=== PATIENT | female | born 2000 | race Caucasian/White ===

== ENCOUNTER 2024-10-05 09:25 | Outpatient (REF) | payer MEDICAID, SELFPAY ==
[2024-10-05 16:37] LABS: Bilirubin Negative (Negative); Blood Large (Negative); Clarity Clear (Clear); Glucose Negative (Negative); Ketones Negative (Negative); Leukocyte Esterase Moderate (Negative); Nitrite Negative (Negative); Specific Gravity >= 1.030 (1.005-1.025); Urobilinogen 0.2 mg/dL (Up to 0.2)
[2024-10-05 16:57] LABS: Bacteria Negative HPF (Negative); C & S Indicated? No; Crystals Negative HPF (Negative); Epithelial Cells Many HPF (Negative); Mucus Trace (Negative)
== END 2024-10-05 09:26 | disposition home or self-care (01) ==
LOC: LBN 09:25
PROVIDERS: PCP Nurse Practitioner Family; Visit Provider Nurse Practitioner Family
DX: N39.0 Urinary tract infection, site not specified (principal); R30.0 Dysuria
CPT/HCPCS: 81003; 81015

== ENCOUNTER 2024-10-16 02:48 | Outpatient (CLI) | payer MEDICAID, SELFPAY ==
[2024-10-16 10:49] LABS: Panorama Kit Sent via Fed Ex
[2024-10-16 10:59] LABS: Abs Immature Grans 0.03 10^3/uL (0.0-0.06); Absolute Basophil Count 0.02 10^3/uL (0.0-0.2); Absolute Eosinophil Count 0.02 10^3/uL (0.0-0.7); Absolute Lymphocyte Count 2.37 10^3/uL (1.2-3.4); Absolute Monocyte Count 0.54 10^3/uL (0.1-0.8); Absolute Neutrophil Count 6.01 10^3/uL (1.2-6.7); Basophils % 0.2 %; Eosinophils % 0.2 %; HCT 38.3 % (36.0-46.0); HGB 13.2 g/dL (11.2-15.7); Immature Grans % 0.3 %; Lymphocytes % 26.4 %; MCH 30.2 pg (27.0-33.0); MCHC 34.5 % (32.0-36.0); MCV 88 fL (80-95); Neutrophils % 66.9 %; Platelet Count 221 10^3/uL (130-400); RBC 4.37 10^6/uL (3.93-5.22); RDW 12.1 % (11.7-14.6); RDW-SD 39.1 fL; WBC 8.99 10^3/uL (4.4-10.8)
[2024-10-16 11:55] LABS: TSH (W/Ref FT4) 0.74 uIU/mL (0.36-3.74)
[2024-10-16 20:14] LABS: HIV-1/2 Ag & Ab Screen Negative (Negative)
[2024-10-16 21:48] LABS: Hepatitis C Ab w Rflx HCV PCR Negative (Negative)
[2024-10-16 22:45] LABS: Hepatitis B Surface Ag Negative (Negative)
[2024-10-18 11:28] LABS: Rubella IgG Ab (UVM) Positive (See Note); Varicella IgG Antibody Positive (See Note)
[2024-10-18 15:32] LABS: Phospholipid Ab, IgG <9.4 GPL; Phospholipid Ab, IgM 10.8 MPL
[2024-10-18 20:23] LABS: Syphilis IgG w/Reflex Nonreactive (Nonreactive)
[2024-10-31 14:57] LABS: Result Summary NEGATIVE; Specimen WB Whole Blood
== END 2024-10-16 02:49 | disposition home or self-care (01) ==
LOC: LBO 02:49
PROVIDERS: PCP Nurse Practitioner Family; Visit Provider Advanced Practice Midwife
DX: Z34.91 Encounter for supervision of normal pregnancy, unspecified, first trimester (principal)
CPT/HCPCS: 36415; 81220; 81222; 86147; 86787; 86803; 86850; 86900; 86901; 87340; 87389; 84443; 85025; 86762; 86780

== ENCOUNTER 2024-10-16 10:39 | Outpatient (REF) | payer MEDICAID, SELFPAY | END 2024-10-16 10:40 | disposition home or self-care (01) | LOC: LBN 10:39 | PROVIDERS: PCP Nurse Practitioner Family; Visit Provider Advanced Practice Midwife | DX: Z34.91 Encounter for supervision of normal pregnancy, unspecified, first trimester (principal) | CPT/HCPCS: 87086 ==

== ENCOUNTER 2024-10-31 19:42 | Emergency (ER) | payer MEDICAID, SELFPAY ==
--- NOTE | 2024-10-31 19:45 | RT.EKG_ITS ---
APPROVED REPORT Exam: Resting ECG Reason for Exam: Shortness of breath Patient Location: E HR:107 bpm ECG Measurements Heart Rate 107 AXIS HI 157 P 54 QRSd 82 QRS 40 QT 326 T 1 QTc 434 Conclusion Sinus tachycardia...rate> 99 Borderline T abnormalities, diffuse leads...T flat/neg
[2024-10-31 19:47] VITALS: BP 133/73; PULSE 114; RESP 20; TEMP 36.8; O2SAT 96
[2024-10-31 19:50] VITALS: BP 133/73; PULSE 114; RESP 20; TEMP 36.8; O2SAT 96
[2024-10-31 20:04] VITALS: RESP 16
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
[2024-10-31 20:29] LABS: Abs Immature Grans 0.02 10^3/uL (0.0-0.06); Absolute Eosinophil Count 0.02 10^3/uL (0.0-0.7); Absolute Lymphocyte Count 1.49 10^3/uL (1.2-3.4); Absolute Monocyte Count 0.43 10^3/uL (0.1-0.8); Eosinophils % 0.3 %; HGB 12.5 g/dL (11.2-15.7); Immature Grans % 0.3 %; Lymphocytes % 24.6 %; MCH 30.4 pg (27.0-33.0); MCHC 34.7 % (32.0-36.0); MCV 88 fL (80-95); MPV 9.1 fL (8.0-11.0); Monocytes % 7.1 %; Neutrophils % 67.7 %; Platelet Count 153 10^3/uL (130-400); RBC 4.11 10^6/uL (3.93-5.22); RDW-SD 38.5 fL; WBC 6.06 10^3/uL (4.4-10.8)
[2024-10-31] MEDS: Albuterol 2.5 MG/3 ML INH SOLN VIAL UPD (20:33)
[2024-10-31] MEDS: Normal Saline 1,000 ML 1000 ML IV (20:45)
[2024-10-31 21:01] LABS: D-Dimer 405 ng/mlFEU (<500); Magnesium 1.9 mg/dL (1.8-2.4); TSH (W/Ref FT4) 0.39 uIU/mL (0.36-3.74); Troponin I < 4 ng/L (<or=51)
[2024-10-31 21:30] LABS: Troponin I < 4 ng/L (<or=51)
[2024-10-31 21:56] VITALS: PULSE 101; RESP 18; O2SAT 99
== END 2024-10-31 21:57 | disposition home or self-care (01) ==
PROVIDERS: Emergency Provider Emergency Medicine; PCP Nurse Practitioner Family
DX: O99.512 Diseases of the respiratory system complicating pregnancy, second trimester (principal); R06.02 Shortness of breath; O99.891 Other specified diseases and conditions complicating pregnancy; R00.1 Bradycardia, unspecified
CPT/HCPCS: 93005; 94640; 99284; 83735; 84443; 84484; 85025; 85379; 93010; J7613

== ENCOUNTER 2025-02-03 22:25 | Emergency (ER) | payer MEDICAID, SELFPAY ==
[2025-02-03] VITALS (56 sets, daily range): BP systolic 103–126; BP diastolic 67–81; PULSE 90–131; RESP 12–23; TEMP 37.1; O2SAT 98–100
--- NOTE | 2025-02-03 22:30 | RT.EKG_ITS ---
APPROVED REPORT Exam: Resting ECG Reason for Exam: chest pain Patient Location: E HR:93 bpm ECG Measurements Heart Rate 93 AXIS SC 158 P 24 QRSd 86 QRS 26 QT 337 T 0 QTc 420 Conclusion Sinus rhythm...normal P axis, V-rate 60- [address] segment or T wave abnormalities to suggest occlusive [place]
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
[2025-02-03 23:21] LABS: Abs Immature Grans 0.06 10^3/uL (0.0-0.06); HCT 32.8 % (36.0-46.0); HGB 11.2 g/dL (11.2-15.7); Immature Grans % 0.5 %; MCH 30.7 pg (27.0-33.0); MCHC 34.1 % (32.0-36.0); MCV 90 fL (80-95); MPV 9.1 fL (8.0-11.0); Platelet Count 215 10^3/uL (130-400); RBC 3.65 10^6/uL (3.93-5.22); RDW 12.1 % (11.7-14.6); RDW-SD 39.5 fL; WBC 11.32 10^3/uL (4.4-10.8)
[2025-02-03 23:35] LABS: INR 0.9 (0.9-1.1); PTT Activated 23.6 sec (20.6-30.2); Prothrombin Time 9.3 sec (9.1-11.1)
[2025-02-03 23:44] LABS: ALT 19 U/L (14-59); AST 11 U/L (15-37); Albumin 3.0 g/dL (3.4-5.0); Alkaline Phosphatase 85 U/L (46-116); Anion Gap 11.5 mmol/L (3-11); BUN 9 mg/dL (7-18); Bilirubin, Total 0.2 mg/dL (0.2-1.0); CO2 24.5 mmol/L (21.0-32.0); Calcium 9.4 mg/dL (8.5-10.1); Chloride 103 mmol/L (98-107); Estimated GFR 135.91 (mL/min/1.73m2); Glucose 111 mg/dL (74-106); Lipase 63 U/L (<78); Magnesium 1.8 mg/dL (1.8-2.4); NT-proBNP 29 pg/mL (<300); Potassium 3.3 mmol/L (3.5-5.1); Sodium 139 mmol/L (136-145); Total Protein 7.2 g/dL (6.4-8.2)
[2025-02-03 23:45] LABS: Troponin I < 4 ng/L (<or=51)
[2025-02-03 23:46] LABS: D-Dimer 763 ng/mlFEU (<500)
[2025-02-04] VITALS (19 sets, daily range): BP systolic 91–120; BP diastolic 55–76; PULSE 93–116; RESP 12–22; TEMP 36.8; O2SAT 97–100
--- NOTE | 2025-02-04 00:30 | DI.RAD_ITS ---
Exam(s) XR CHEST 2V PA LATERAL EXAM: XR CHEST 2V PA LATERAL CLINICAL HISTORY: chest pain TECHNIQUE: 2D digital imaging was performed. Two views. COMPARISON: No exams were available for comparison FINDINGS: HEART: Normal size. Aorta: Not dilated. PULMONARY VASCULATURE: Normal. MEDIASTINUM: Unremarkable. LUNGS: Clear. PLEURAL SPACE: No pleural effusion or pneumothorax. BONE:Mild scoliosis. SOFT TISSUES: Unremarkable. IMPRESSION: No acute abnormality. The preliminary [facility] report was reviewed. DATA REPOSITORY: RADIATION DOSE DELIVERED:
[2025-02-04] MEDS: Potassium Chloride Liquid 20 MEQ PKT 40 MEQ PO (00:50)
[2025-02-04 00:54] LABS: Troponin I < 4 ng/L (<or=51)
[2025-02-04 00:57] LABS: Glucose Negative (Negative)
[2025-02-04 00:59] LABS: C & S Indicated? No
--- NOTE | 2025-02-04 02:10 | DI.[facility]_ITS ---
PROCEDURE INFORMATION: Exam: XR Chest Exam date and time: 02/04/2025 12:59 AM Age: 24 years old Clinical indication: Chest wall pain and left-sided; Additional info: Chest pain TECHNIQUE: Imaging protocol: Radiologic exam of the chest. Views: 2 views. COMPARISON: No relevant prior studies available. FINDINGS: Lungs: No focal consolidation seen. Pleural spaces: No large pleural effusion seen. Heart/Mediastinum: No cardiomegaly. Bones/joints: Mild spinal curvature. IMPRESSION: No acute findings to explain reported symptoms. Dictated and Authenticated by: Eboni Merrill MD. Orderin Yari Torres MD
--- NOTE | 2025-02-06 07:51 | NUR.NOTE ---
Access chart to reconcile EKG orders with EKG's in [facility]. Duplicate order cancelled. Nursing Note:
== END 2025-02-04 02:39 | disposition home or self-care (01) ==
PROVIDERS: Emergency Provider Student in an Organized Health Care Education/Training Program; PCP Nurse Practitioner Family
DX: O99.412 Diseases of the circulatory system complicating pregnancy, second trimester (principal); R07.9 Chest pain, unspecified; Z79.82 Long term (current) use of aspirin; Z3A.27 27 weeks gestation of pregnancy
CPT/HCPCS: 80053; 83690; 93005; 99284; 71046; 81003; 81015; 83735; 83880; 84484; 85025; 85379; 85610; 85730; 93010

== ENCOUNTER 2025-02-08 00:31 | Outpatient (CLI) | payer MEDICAID, SELFPAY ==
--- NOTE | 2025-02-08 11:40 | DI.US_ITS ---
Exam(s) US OB HARLAN WEIGHT EXAM: US OB HARLAN WEIGHT CLINICAL HISTORY: size and HARLAN, hx prior preg IUGR , Z87.59. TECHNIQUE: Transabdominal obstetrical ultrasound performed. COMPARISON: US POCUS EXAM from 09/19/2024 FINDINGS: Number of fetuses: 1 position: BREECH Placental location: There is a grade 1 anterior placenta. The placental tip is greater than 5 cm from the internal os. No evidence of previa. BIOMETRIC DATA: BPD: 7.71cm, 31weeks HC: 27.44cm, 30weeks AC: 24.48cm, 28weeks 5days FL: 5.17cm, 27weeks 4days EFW: 1,257.05g, 2lb 13.98oz, 44.2% Composite Age: 29weeks 2days RUSSELL: 04/24/2025 Heart Rate: 142bpm Amniotic fluid index: 22.03cm. The largest pocket is 6.9 cm. IMPRESSION: 1. Single live intrauterine gestation as above. 2. Estimated weight is 1257gms. This is the 44th percentile. 3. Amniotic fluid index is 22 cm. The largest pocket is 6.9 cm. DATA REPOSITORY:
== END 2025-02-08 00:51 ==
LOC: DI 00:32
PROVIDERS: PCP Nurse Practitioner Family; Visit Provider Advanced Practice Midwife
DX: Z34.83 Encounter for supervision of other normal pregnancy, third trimester (principal); Z3A.31 31 weeks gestation of pregnancy
CPT/HCPCS: 76816

== ENCOUNTER 2025-02-08 01:24 | Outpatient (CLI) | payer MEDICAID, SELFPAY ==
[2025-02-08 10:46] LABS: HCT 33.9 % (36.0-46.0); HGB 11.6 g/dL (11.2-15.7); MCH 31.4 pg (27.0-33.0); MCHC 34.2 % (32.0-36.0); MCV 92 fL (80-95); MPV 9.2 fL (8.0-11.0); Platelet Count 208 10^3/uL (130-400); RBC 3.69 10^6/uL (3.93-5.22); RDW 12.3 % (11.7-14.6); RDW-SD 41.6 fL; WBC 9.69 10^3/uL (4.4-10.8)
[2025-02-08 10:57] LABS: Glucose,1 Hr (Glucola) 121 mg/dL (80-140)
== END 2025-02-08 01:25 | disposition home or self-care (01) ==
LOC: LBO 01:24
PROVIDERS: PCP Nurse Practitioner Family; Visit Provider Advanced Practice Midwife
DX: Z34.92 Encounter for supervision of normal pregnancy, unspecified, second trimester
CPT/HCPCS: 36415; 82950; 85027

== ENCOUNTER 2025-02-17 09:18 | Outpatient (CLI) | payer MEDICAID, SELFPAY ==
[2025-02-17 10:29] VITALS: BP 112/75; PULSE 113; TEMP 36.6
[2025-02-17 10:38] VITALS: BP 112/75; PULSE 113
--- NOTE | 2025-02-17 11:06 | PDOC.NST_ITS ---
Date of service: 02/17/25 Time of Service: 11:06 NST Evaluation Reason for NST Reasons for Nonstress Test: DECREASED MOVEMENT Gestational Age Gestational Age in Weeks and Days: 29 Weeks and 5Days Test and Monitor Explained Test/Monitor Explained: Test Explained, Monitor Explained and Patient Verbalized Understanding Vital Signs Blood Pressure: 112/75 Pulse: 113 Temperature: 97.9 F Urine Results Urine Protein: Negative Urine Ketones: Negative Urine Glucose: Negative Urine Blood: Positive NST Information Date on Monitor: 02/17/25 Time on Monitor: 10:35 Date off Monitor: 02/17/25 NST Interventions: PO Hydration Contraction Frequency: 0 NST Evaluation Patient States Movement: Present FHR Baseline: 140 Variability: Moderate 6-25 bpm Accelerations: 10x10 Decelerations: None NST Results: Reactive Note Ultrasound Done: N/A. NST Note Note: Rossi is a 24 year old at 29 weeks 5 days gestational age who pre sents to L&D triage for evaluation of decreased FM. FM was noticeably less this morning, though since arrival on the unit is has returned to typical abudnance. history is notable for an IUFD at 20 weeks and FGR resulting in 36 week IOL, so she understandably is nervous. She denies VB/LOF/CTXs. O: VSS FHTs 140s baseline, moderate variability, 10 x 10 accels no decels Abdomen: gravid, NT, + FM palpated A: IUP at 29 weeks 5 days Reassuring status for gestational age P: - Reassurance given to Rossi. - Discussed kick counts, recommended assessing once per day with in structions to call if she has fewer than 10 movements in 2 hours - Follow-up this week for routine care NST Reviewed and Verified by: Candice Santos
[2025-02-17 11:15] VITALS: BP 112/75; PULSE 113; TEMP 36.6
== END 2025-02-17 11:06 ==
LOC: BCD 09:19 → OBS 09:21
PROVIDERS: PCP Nurse Practitioner Family; Visit Provider Advanced Practice Midwife
DX: O36.8131 Decreased fetal movements, third trimester, fetus 1 (principal); Z3A.29 29 weeks gestation of pregnancy
CPT/HCPCS: 59025

== ENCOUNTER 2025-03-12 22:30 | Outpatient (CLI) | payer MEDICAID, SELFPAY ==
[2025-03-12 22:35] VITALS: BP 110/71; PULSE 103
[2025-03-12 22:50] VITALS: BP 110/71; PULSE 103; RESP 18
--- NOTE | 2025-03-13 06:41 | W.OBNST ---
Date of service: 03/13/25 Time of Service: 06:41 NST Evaluation Reason for NST Reasons for Nonstress Test: DECREASED MOVEMENT Gestational Age Gestational Age in Weeks and Days: 33 Weeks and 0Days Test and Monitor Explained Test/Monitor Explained: Test Explained, Monitor Explained and Patient Verbalized Understanding Vital Signs Blood Pressure: 110/71 Pulse: 103 NST Information Date on Monitor: 03/12/25 Time on Monitor: 22:35 Date off Monitor: 03/12/25 Time off Monitor: 23:29 Total Time on Monitor: 54 NST Interventions: None NST Evaluation Patient States Movement: Present FHR Baseline: 130 Variability: Moderate 6-25 bpm Accelerations: 15x15 Decelerations: None NST Results: Reactive Note Ultrasound Done: N/A. NST Note Note: Rossi called and reported that she tried to listen to her baby's heartbeat with a doppler at home and was unable to hear it. She was concerned. She was instructed to come in to NST. Reactive NST. NST Reviewed and Verified by: Vickie Castillo
[2025-03-13 06:43] VITALS: BP 110/71; PULSE 103
== END 2025-03-12 23:30 ==
LOC: BCD 22:30 → OBS 22:44
PROVIDERS: PCP Nurse Practitioner Family; Visit Provider Advanced Practice Midwife
DX: O36.8131 Decreased fetal movements, third trimester, fetus 1 (principal); Z3A.33 33 weeks gestation of pregnancy
CPT/HCPCS: 59025

== ENCOUNTER 2025-03-19 03:22 | Outpatient (CLI) | payer MEDICAID, SELFPAY ==
--- NOTE | 2025-03-19 06:30 | DI.US_ITS ---
Exam(s) US OB HARLAN WEIGHT EXAM: US OB HARLAN WEIGHT CLINICAL HISTORY: HARLAN and growth, HX PRIOR IUGR , Z87.59. TECHNIQUE: Transabdominal obstetrical ultrasound performed. COMPARISON: US US OB HARLAN WEIGHT from 02/08/2025 FINDINGS: Number of fetuses: 1 position: CEPHALIC Placental location: There is a grade 1 anterior placenta. No evidence of previa. BIOMETRIC DATA: BPD: 8.74cm, 35weeks 2days HC: 32.2cm, 36weeks 3days AC: 30.21cm, 34weeks 1day FL: 5.91cm, 30weeks 6days. This is less than the 3rd percentile. EFW: 2,222.37g, 5lb 1.11oz, 30.4% Composite Age: 34weeks 1day RUSSELL: 04/29/2025 Heart Rate: 133bpm Amniotic fluid index: 14.65cm. The largest pocket is 4.3 cm. IMPRESSION: 1. Single live intrauterine gestation as above. 2. Estimated weight is 2222gms. This is the 30th percentile. 3. Amniotic fluid index is 14.7 cm. The largest pocket is 4.3 cm. DATA REPOSITORY:
== END 2025-03-19 03:42 ==
LOC: DI 03:22
PROVIDERS: PCP Nurse Practitioner Family; Visit Provider Advanced Practice Midwife
DX: Z87.59 Personal history of other complications of pregnancy, childbirth and the puerperium (principal); O09.293 Supervision of pregnancy with other poor reproductive or obstetric history, third trimester; Z3A.36 36 weeks gestation of pregnancy
CPT/HCPCS: 76816

== ENCOUNTER 2025-03-25 15:56 | Outpatient (CLI) | payer MEDICAID, SELFPAY ==
[2025-03-25 16:28] VITALS: BP 118/71; PULSE 97
[2025-03-25 16:47] VITALS: BP 118/71; PULSE 97
--- NOTE | 2025-03-25 16:55 | W.OBNST ---
Date of service: 03/25/25 Time of Service: 16:55 NST Evaluation Reason for NST Reasons for Nonstress Test: DECREASED MOVEMENT Gestational Age Gestational Age in Weeks and Days: 34 Weeks and 6Days Test and Monitor Explained Test/Monitor Explained: Test Explained, Monitor Explained and Patient Verbalized Understanding Vital Signs Blood Pressure: 118/71 Pulse: 97 NST Information Time on Monitor: 16:16 Date off Monitor: 03/25/25 Time off Monitor: 16:45 NST Interventions: None Contraction Frequency: none NST Evaluation Patient States Movement: Present FHR Baseline: 145 Variability: Moderate 6-25 bpm Accelerations: 15x15 Decelerations: None NST Results: Reactive Note Ultrasound Done: N/A. NST Note Note: Reactive NST for ddecreased FM at 34+6 weeks gestation. Upon arrival to the unit, Rossi started to feel more abundant movement. She feels reassured by this NST and will follow-up for routine care, or sooner as needed. 3rd trimester warnings were reviewed. NST Reviewed and Verified by: Candice Santos
[2025-03-25 16:57] VITALS: BP 118/71; PULSE 97
== END 2025-03-25 16:50 ==
LOC: BCD 15:56 → OBS 16:12
PROVIDERS: PCP Nurse Practitioner Family; Visit Provider Advanced Practice Midwife
DX: O36.8131 Decreased fetal movements, third trimester, fetus 1 (principal); Z3A.34 34 weeks gestation of pregnancy
CPT/HCPCS: 59025

== ENCOUNTER 2025-03-29 10:17 | Outpatient (CLI) | payer MEDICAID, SELFPAY ==
[2025-03-29 10:39] VITALS: BP 120/79; PULSE 105; TEMP 36.9
[2025-03-29 10:45] VITALS: BP 120/79; PULSE 102; PULSE 107
--- NOTE | 2025-03-29 12:06 | W.OBNST ---
Date of service: 03/29/25 Time of Service: 12:06 NST Evaluation Reason for NST Reasons for Nonstress Test: OTHER, SEE COMMENT Reason for NST Other: BP check Gestational Age Gestational Age in Weeks and Days: 35 Weeks and 3Days Test and Monitor Explained Test/Monitor Explained: Test Explained, Monitor Explained and Patient Verbalized Understanding Vital Signs Blood Pressure: 120/79 Pulse: 105 Temperature: 98.5 F Urine Results Urine Protein: Negative Urine Ketones: Negative Urine Glucose: Negative Urine Blood: Positive NST Information Date on Monitor: 03/29/25 Time on Monitor: 10:28 Date off Monitor: 03/29/25 Time off Monitor: 11:18 Total Time on Monitor: 50 NST Interventions: PO Hydration Contraction Frequency: 0 NST Evaluation Patient States Movement: Present FHR Baseline: 140 Variability: Moderate 6-25 bpm Accelerations: 15x15 Decelerations: None NST Results: Reactive Note Ultrasound Done: N/A. NST Note Note: Patient seen in the center with complaints of decreased movement and shortness of breath. She is 35 weeks patient of the midwives. She has a category 1, reactive nonstress test. She is having no uterine activity. She has concerns about shortness of breath, though this appears to be physiologic. She also was inquiring about labor induction at 39 weeks which would be appropriate with her history of 20-week demise. At this point, she will be seen for weekly nonstress testing. NST Reviewed and Verified by: Poornima Richardson
[2025-03-29 12:07] VITALS: BP 120/79; PULSE 105; TEMP 36.9
== END 2025-03-29 11:22 ==
LOC: BCD 10:17 → OBS 10:21
PROVIDERS: PCP Nurse Practitioner Family; Visit Provider Obstetrics & Gynecology
DX: Z3A.35 35 weeks gestation of pregnancy (principal); O09.293 Supervision of pregnancy with other poor reproductive or obstetric history, third trimester
CPT/HCPCS: 59025

== ENCOUNTER 2025-03-31 20:53 | Outpatient (CLI) | payer MEDICAID, SELFPAY ==
[2025-03-31 21:34] VITALS: BP 118/78; PULSE 85; RESP 16; TEMP 36.6; O2SAT 98
[2025-03-31 21:35] VITALS: BP 118/78; PULSE 85; TEMP 36.6
--- NOTE | 2025-03-31 22:22 | W.OBNST ---
Date of service: 03/31/25 Time of Service: 22:22 NST Evaluation Reason for NST Reasons for Nonstress Test: DECREASED MOVEMENT Gestational Age Gestational Age in Weeks and Days: 35 Weeks and 5Days Test and Monitor Explained Test/Monitor Explained: Test Explained Vital Signs Blood Pressure: 118/78 Pulse: 85 Temperature: 97.9 F Weight: 165 lb Urine Results Urine Protein: Negative Urine Ketones: Positive Urine Glucose: Negative Urine Blood: Positive NST Information Date on Monitor: 03/31/25 Time on Monitor: 21:30 Date off Monitor: 03/31/25 Time off Monitor: 22:22 Total Time on Monitor: 52 NST Evaluation Patient States Movement: Present FHR Baseline: 135 Variability: Moderate 6-25 bpm Accelerations: 15x15 Decelerations: None NST Results: Reactive Note Ultrasound Done: N/A. NST Note NST Reviewed and Verified by: Bhargavi Merrill
[2025-03-31 22:23] VITALS: BP 118/78; PULSE 85; TEMP 36.6
[2025-03-31 22:39] LABS: Glucose Negative (Negative)
== END 2025-03-31 22:40 | disposition other institution (70) ==
LOC: BCD 20:54 → OBS 21:50
PROVIDERS: PCP Nurse Practitioner Family; Visit Provider Advanced Practice Midwife
DX: Z3A.39 39 weeks gestation of pregnancy (principal); O36.8131 Decreased fetal movements, third trimester, fetus 1; R06.02 Shortness of breath
CPT/HCPCS: 59025; 81003; 87086

== ENCOUNTER 2025-04-03 08:25 | Outpatient (CLI) | payer MEDICAID, SELFPAY ==
[2025-04-03 14:47] LABS: ALT 22 U/L (14-59); AST 17 U/L (15-37); Albumin 2.7 g/dL (3.4-5.0); Alkaline Phosphatase 130 U/L (46-116); Anion Gap 10.9 mmol/L (3-11); BUN 17 mg/dL (7-18); Bilirubin, Total 0.3 mg/dL (0.2-1.0); CO2 23.1 mmol/L (21.0-32.0); Calcium 9.3 mg/dL (8.5-10.1); Chloride 103 mmol/L (98-107); Estimated GFR 129.27 (mL/min/1.73m2); Glucose 91 mg/dL (74-106); Potassium 3.8 mmol/L (3.5-5.1); Sodium 137 mmol/L (136-145); Total Protein 6.9 g/dL (6.4-8.2)
[2025-04-06 09:45] LABS: Total Bile Acids 5.33 nmol/mL (<=19.00); Total Chenodeoxycholic acid 2.41 nmol/mL (<=6.00); Total Cholic acid 1.51 nmol/mL (<=5.00); Total Deoxycholic acid 1.23 nmol/mL (<=6.00); Total Ursodeoxycholic acid 0.18 nmol/mL (<=2.00)
== END 2025-04-03 08:26 | disposition home or self-care (01) ==
LOC: LBO 04-04 08:25
PROVIDERS: PCP Nurse Practitioner Family; Visit Provider Advanced Practice Midwife
DX: L50.8 Other urticaria (principal)
CPT/HCPCS: 36415; 80053; 83789

== ENCOUNTER 2025-04-04 02:41 | Outpatient (CLI) | payer MEDICAID, SELFPAY ==
--- NOTE | 2025-04-04 05:45 | DI.US_ITS ---
Exam(s) US OB HARLAN WEIGHT EXAM: US OB HARLAN WEIGHT CLINICAL HISTORY: interval growth, HARLAN @ 36 wks,o09.292,H/O IUGR,PRIOR AND LOSS OF . TECHNIQUE: Transabdominal obstetrical ultrasound performed. COMPARISON: US US OB HARLAN WEIGHT from 02/08/2025 US US OB HARLAN WEIGHT from 03/19/2025 FINDINGS:: Number of fetuses: 1 position: CEPHALIC Placental location: ANTERIOR No evidence of previa. BIOMETRIC DATA: BPD: 9.27cm, 37weeks 5days HC: 34.12cm, 39weeks 2days AC: 32.88cm, 36weeks 6days FL: 6.6cm, 34weeks EFW: 2,942.77g, 6lb 9.55oz, 57.3% Composite Age: 37weeks RUSSELL: 04/25/2025 Heart Rate: 164bpm Amniotic fluid index: 14.24cm. Visually, amount of fluid is within normal limits. IMPRESSION: size and weight are within the expected range. There has been appropriate interval growth since the previous exam. DATA REPOSITORY:
== END 2025-04-04 03:01 ==
LOC: DI 02:41
PROVIDERS: PCP Nurse Practitioner Family; Visit Provider Advanced Practice Midwife
DX: Z87.59 Personal history of other complications of pregnancy, childbirth and the puerperium (principal); O09.293 Supervision of pregnancy with other poor reproductive or obstetric history, third trimester; F41.9 Anxiety disorder, unspecified; Z3A.39 39 weeks gestation of pregnancy
CPT/HCPCS: 76816

== ENCOUNTER 2025-04-04 11:31 | Outpatient (REF) | payer MEDICAID, SELFPAY | END 2025-04-04 11:32 | disposition home or self-care (01) | LOC: LBN 11:31 | PROVIDERS: PCP Nurse Practitioner Family; Visit Provider Advanced Practice Midwife | DX: Z34.93 Encounter for supervision of normal pregnancy, unspecified, third trimester | CPT/HCPCS: 87081 ==

== ENCOUNTER 2025-04-05 07:31 | Outpatient (CLI) | payer MEDICAID, SELFPAY ==
[2025-04-05 11:38] VITALS: BP 123/81; PULSE 96
[2025-04-05 12:07] VITALS: BP 123/81; PULSE 96; TEMP 36.8
--- NOTE | 2025-04-05 12:30 | W.OBNST ---
Date of service: 04/05/25 Time of Service: 12:31 NST Evaluation Reason for NST Reasons for Nonstress Test: OTHER, SEE COMMENT Reason for NST Other: pt states for anxiety Gestational Age Gestational Age in Weeks and Days: 36 Weeks and 3Days Test and Monitor Explained Test/Monitor Explained: Test Explained, Monitor Explained and Patient Verbalized Understanding Vital Signs Blood Pressure: 123/81 Pulse: 96 Temperature: 98.2 F Urine Results Urine Protein: Negative Urine Ketones: Negative Urine Glucose: Negative Urine Blood: Negative NST Information Date on Monitor: 04/05/25 Time on Monitor: 11:07 Date off Monitor: 04/05/25 Time off Monitor: 12:04 Total Time on Monitor: 57 NST Interventions: PO Hydration NST Evaluation Patient States Movement: Present FHR Baseline: 135 Variability: Moderate 6-25 bpm Accelerations: 15x15 Decelerations: None NST Results: Reactive Note Ultrasound Done: N/A. NST Note Note: Weekly NST. reactive NST, RTO in 1 week for NST and visit. NST Reviewed and Verified by: Vickie Castillo
[2025-04-05 12:31] VITALS: BP 123/81; PULSE 96; TEMP 36.8
== END 2025-04-05 12:07 ==
LOC: BCD 07:34 → OBS 11:12
PROVIDERS: PCP Nurse Practitioner Family; Visit Provider Obstetrics & Gynecology
DX: O99.891 Other specified diseases and conditions complicating pregnancy (principal); F41.9 Anxiety disorder, unspecified; Z3A.36 36 weeks gestation of pregnancy
CPT/HCPCS: 59025

== ENCOUNTER 2025-04-13 08:13 | Outpatient (CLI) | payer MEDICAID, SELFPAY ==
[2025-04-13 10:41] VITALS: BP 122/76; PULSE 113; TEMP 209.1; TEMP 98.4
[2025-04-13 12:46] VITALS: BP 122/76; PULSE 113; TEMP 209.1; TEMP 98.4
--- NOTE | 2025-04-13 12:46 | W.OBNST ---
Date of service: 04/13/25 Time of Service: 12:46 NST Evaluation Reason for NST Reasons for Nonstress Test: PREVIOUS DEMISE Gestational Age Gestational Age in Weeks and Days: 37 Weeks and 4Days Test and Monitor Explained Test/Monitor Explained: Test Explained Vital Signs Blood Pressure: 122/76 Pulse: 113 Temperature: 209.1 F Weight: 5.997 oz Urine Results Urine Protein: Negative Urine Ketones: Negative Urine Glucose: Negative Urine Blood: Negative NST Information Date on Monitor: 04/13/25 Time on Monitor: 09:53 Date off Monitor: 04/13/25 Time off Monitor: 10:35 Total Time on Monitor: 42 NST Interventions: PO Hydration and Reposition Patient Contraction Frequency: Pt denies NST Evaluation Patient States Movement: Present FHR Baseline: 135 Variability: Moderate 6-25 bpm Accelerations: 15x15 Decelerations: None NST Results: Reactive Note Ultrasound Done: N/A. NST Note Note: Weekly NST due to history of demise. Reactive NST. Return in 1 week. NST Reviewed and Verified by: Vickie Castillo
== END 2025-04-13 10:13 | disposition home or self-care (01) ==
LOC: BCD 08:13
PROVIDERS: PCP Nurse Practitioner Family; Visit Provider Advanced Practice Midwife
DX: O09.893 Supervision of other high risk pregnancies, third trimester (principal); Z3A.37 37 weeks gestation of pregnancy
CPT/HCPCS: 59025

== ENCOUNTER 2025-04-20 07:09 | Outpatient (CLI) | payer MEDICAID, SELFPAY ==
[2025-04-20 10:06] VITALS: BP 112/78; PULSE 100; TEMP 36.5
[2025-04-20 10:12] VITALS: BP 112/78; PULSE 100
--- NOTE | 2025-04-20 11:38 | W.OBNST ---
Date of service: 04/20/25 Time of Service: 11:39 NST Evaluation Reason for NST Reasons for Nonstress Test: OTHER, SEE COMMENT Reason for NST Other: Anxiety Gestational Age Gestational Age in Weeks and Days: 38 Weeks and 4Days Test and Monitor Explained Test/Monitor Explained: Test Explained and Monitor Explained Vital Signs Blood Pressure: 112/78 Pulse: 100 Temperature: 97.7 F Weight: 165 lb Urine Results Urine Protein: Positive Urine Ketones: Negative Urine Glucose: Negative Urine Blood: Positive NST Information Date on Monitor: 04/20/25 Time on Monitor: 10:10 Date off Monitor: 04/20/25 Time off Monitor: 11:21 Total Time on Monitor: 71 NST Interventions: PO Hydration NST Evaluation Patient States Movement: Present FHR Baseline: 135 Variability: Moderate 6-25 bpm Accelerations: 15x15 Decelerations: None NST Results: Reactive Note Ultrasound Done: N/A. NST Note Note: Will return 04/23 for 39 wk IOL NST Reviewed and Verified by: Bhargavi Merrill
[2025-04-20 11:39] VITALS: BP 112/78; PULSE 100; TEMP 36.5
== END 2025-04-20 11:35 ==
LOC: BCD 07:09 → OBS 10:05
PROVIDERS: PCP Nurse Practitioner Family; Visit Provider Advanced Practice Midwife
DX: Z3A.38 38 weeks gestation of pregnancy (principal); O99.891 Other specified diseases and conditions complicating pregnancy; F41.9 Anxiety disorder, unspecified
CPT/HCPCS: 59025

== ENCOUNTER 2025-04-23 08:21 | Inpatient (IN) | payer MEDICAID, SELFPAY ==
[2025-04-23] VITALS (15 sets, daily range): BP systolic 102–127; BP diastolic 61–81; PULSE 76–126; RESP 16–18; TEMP 36.3–37; O2SAT 97–98
[2025-04-23 08:48] LABS: Abs Immature Grans 0.01 10^3/uL (0.0-0.06); HCT 37.4 % (36.0-46.0); HGB 13.0 g/dL (11.2-15.7); Immature Grans % 0.1 %; MCH 31.1 pg (27.0-33.0); MCHC 34.8 % (32.0-36.0); MCV 90 fL (80-95); MPV 9.9 fL (8.0-11.0); Platelet Count 179 10^3/uL (130-400); RBC 4.18 10^6/uL (3.93-5.22); RDW 12.4 % (11.7-14.6); RDW-SD 40.2 fL; WBC 7.93 10^3/uL (4.4-10.8)
[2025-04-23] MEDS: Penicillin G POT. 5,000,000 UNITS in Normal Saline 100 ML 200 UNITS IVPB (09:41)
[2025-04-23] MEDS: Lactated Ringers 1,000 ML 125 ML IV (09:42)
[2025-04-23] MEDS: miSOPROStol 25 MCG TAB VG (09:47)
--- NOTE | 2025-04-23 10:23 | HPE_ITS ---
Date of service: 04/23/25 Time of Service: 10:23 Assessment and Plan Assessment and plan (1) Encounter for induction of labor: Status: Acute Assessment and plan: Admit to Center and routine admission labs. Comfort measures. Reviewed cervical ripening options and Rossi elects vaginal misoprostol. Anticipate . OB-HPI Labor/Delivery History of Present Illness Reason for Visit: Elective IOL@39 weeks Chief Complaint: Scheduled Induction of Labor (history of demise) Indication for Induction: Other (previous IUFD, maternal anxiety). RUSSELL Calculator Estimated Delivery Date Method Current WG Current Estimate 04/30/25 LMP (Certain) 39w 0d Other Estimates 04/26/25 Ultrasound #1 39w 4d Comments: Rossi presents for an induction of labor for previous IUFD and anxiety. She wishes to proceed with cervical ripening History of Present Expected Delivery Route/Plan - CNM FOB/ - Serge Tom (2nd child together, not Michelle's bio-dad) BB yes to circ- Jose GBS+: PCN PPx Hopes to avoid IOL/pitocin drip during labor; changed mind d/t anxiety. Elective IOL tentatively scheduled 04/23. GBS POSITIVE, recommend PCN prophylaxis in labor Specific Issues/Plan 1. 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 Prior 2nd trimester loss and 36wk IOL for IUGR 2a. [facility] [place] and level 2 sono. 2b. MFM note: low dose ASA @ 12 wks, APLS screen(neg 10/16), cfDNA screen, level 2 scan, 32 wk scan 2c. level 2 scan 12/04/24- normal anatomy, 2d. Interval growth @ 28 wks - HARLAN 22, 44%ile, 34 wks: 30th percentile, HARLAN 15 2e. At 36 wks EFW in 57th percentile, HARLAN 14, cephalic 3. Anxiety: Wants to start meds . Has tried other meds without effect. Pt consents to consult call to Dr. Mann. Dr Mann recommends trying sertraline at HS 25 mg and increasing to 50 mg PRN. She recommended 2 other options ( see note) 4. cfDNA - low risk, CF neg 5. Heartburn - taking TUMS 6. 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 At 36 wks reports generalized itching, incl hands and feet. CMP-nml, Bile Acids- WNL PFSH All Active Problems (Updated 04/23/25 @ 10:26 by Vickie Castillo CNM) Encounter for induction of labor (Acute) Grief at loss of child (Acute) 19 week loss (Acute) Anxiety (Chronic) Depression (Chronic) Mood disorder (Acute) Medical History (Updated 04/23/25 @ 10:26 by Vickie Castillo CNM) Acute urticaria Prior loss in second trimester, antepartum 04/18, 19 wk demise, umbilical stricture, fetus was male, 16 wk size related pelvic pain, antepartum Sacral dimple MRI age 10 Asthma History of prior with IUGR Surgical History S/P tonsillectomy (~2009) Family History Mother Diabetes Son No problems noted. Maternal Grandmother Diabetes Paternal Grandmother Depression Paternal Grandfather Colon cancer Father Age: 47 No problems noted. 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 Sexually active: Yes Do you think of yourself as: straight/heterosexual Current gender identity: female What is your relationship status?: How often do you talk on the phone with friends or family?: three or more times per week How often do you get together with friends or relatives?: twice per week How often do you attend catholic or orthodox services?: decline to answer Do you belong to any clubs or organized social groups?: no Panel score (0-1 are the most socially isolated patients): 2 What type of physical activity do you participate in: none Jesenia/Temple: Confucianist Special jesenia needs: No Seatbelt use: always Drive intox or ride w/intox minibus driver: No Firearms in home: Yes Firearms unloaded and locked: Yes In current or past relationships, have you been: made to feel afraid Do you feel safe at home: Yes Do you feel safe in your relationship?: Yes Victim of physical abuse: No Victim of emotional abuse: Yes Victim of sexual abuse: No Would you like helpful sources: Yes History History 3 Para 1 Hx # Term Pregnancies 0 Multiple births 0 Hx # Pregnancies 1 Ectopic pregnancies 0 AB induced 1 Hx Number of Living Children 1 AB spontaneous 0 Past Pregnancies Del. Date GA/Weeks # Preg Succ Route Wgt Sex Labor Lgth Anesth esia Location Prov Complic 05/10/21 36 No Yes vaginal 5 lb Female [place] 04/20/24 20 No No vaginal 1.7 oz Male [place] Delivery Date: 05/10/21 Last Updated by: Vickie Castillo CNM IOL for IUGR, Oligohydramnios, took 2 days, nml Michelle Delivery Date: 04/20/24 Last Updated by: Bhargavi Merrill IOL for demise, campos, miso & pit, 2 day process Clint (cremated) Meds Allergies and Home Medications Allergies Allergy/AdvReac Type Severity Reaction Status Date / Time No Known Allergies Allergy Verified 04/17/25 10:54 Home Medications ?Medication ?Instructions ?Recorded ?Confirmed ?Type aspirin 81 mg chewable tablet 162 mg (2 x 81 mg) PO DA INDIGO #90 10/16/24 04/23/25 Rx tabs docusate sodium 100 mg capsule 100 mg PO BID #60 caps 01/18/25 04/23/25 Rx (Colace) vitamins with calcium 1 tab PO DAILY #90 tabs 02/27/25 04/23/25 Rx no.72-iron 27 mg-folic acid 1 mg tablet (WesTab Plus) albuterol sulfate 90 mcg/actuation 2 puff inhalation Q 6H PRN 04/04/25 04/23/25 Rx aerosol inhaler shortness of breath or wheez ing #6.7 grams Exam Physical Exam Vital signs: Temp Pulse Resp BP Pulse Ox 98.2 F 119 H 18 123/81 97 04/23/25 08:27 04/23/25 08:27 04/23/25 08:27 04/23/25 08:27 04/23/25 08:27 Vital Signs Reviewed: Yes Constitutional Constitutional: no acute distress Detailed Labor and Delivery Exam Dilation: 2 Effacement (%): 70 station: -1 Cervix position: mid Consistency: soft Vail Score: Cervical Points Exam 0 1 2 3 Dilation Closed 1-2cm 3-4 cm 5-6cm Effacement 0-30% 40-50% 60-70% 80% Consistency Firm Medium Soft Station -3 -2 -1,0 +1,+2 Position Posterior Mid Anterior VAIL Score(Cervical Ripeness Score): 9 Amniotic Membrane Status: Intact Monitor Mode: External Contraction Frequency(min): occasional Contraction Intensity: Mild Fetus A Heart Rate Baseline: 140 Monitor Accelerations: 15 X 15 Monitor Decelerations: None Variability: Moderate (6-25 BPM) Presentation: Cephalic Categories: Category I Est. Weight: 7 lb HEENT Exam HEENT Exam: Normal Respiratory Exam Respiratory Exam: Normal Cardiovascular Exam Cardiovascular Exam: Normal Rectal Exam Rectal Exam: Normal Exam Exam: Normal Extremities Exam Extremities Exam: Normal Skin Exam Skin Exam: Normal Psychiatric Exam Psychiatric Exam: Normal Results Results Group Beta Strep: Positive Blood Type: A+ Rubella Status: Immune Varicella Immunity: Immune Risk Assessment Risk for Shoulder Dystocia Historical/Initial OB: NEGATIVE FOR: Pelvic Abnormality, Pre- BMI>30, Previous Shoulder Dystocia or Previous Macrosomia 36 Weeks: NEGATIVE FOR: Current Gestational DM, EFW>4500gms or Maternal Weight Gain>40lbs 40 Weeks: NEGATIVE FOR: EFW> 4500 gms, Maternal Weight Gain >40lb or Post Dates Risk for Pre-Eclampsia Date Initiated/Initials: To start now (13 wks). JK Yes, if one or more: NEGATIVE FOR: Hx Pre-E/Gest HTN, Chronic HTN, Multiple Gestation, Pre-gestational DM, Renal Disease, Systemic Lupus or APA Syndrome Yes, if 2 or more: POSITIVE FOR: Previous IUGR; NEGATIVE FOR: Nulliparity, Age>= 35 yrs, >10yr btwn pregnancies, BMI>30, ethinicty or Mother/Sister w/ Pre-E Risk for Post- Hemorrhage Initial: NEGATIVE FOR: Multiple Gestation, Previous PPH, Known Clotting Deficiency, Grand Multiparity or Anticoagulation 36 Weeks: NEGATIVE FOR: Anemia, hgb<10, Low platelets(thrombocytopenia), Gestational HTN or Pre-E, Polyhydraminios or EFW>4500gms 40 Weeks: NEGATIVE FOR: Anemia, hgb<10, Low platelets (thrombocytopenia), Gestation HTN or Pre-E, Polyhydraminios or EFW>4500gms At Risk?: No Risks Reviewed Risks Reviewed Upon Admission: Yes
[2025-04-23] MEDS: Penicillin G POT. 3,000,000 UNITS in Normal Saline 50 ML 100 UNITS IVPB ×2 (14:32→17:53)
--- NOTE | 2025-04-23 15:29 | W.PM.OBNL1 ---
Date of service: 04/23/25 Time of Service: 15:29 Informed Consent Informed Consent: Risk,Benefits,Alternatives Discussed (AROM vs. pitocin augmentatio) Pelvic Exam Dilation: 3 Effacement (%): 75 station: -1 Position: SITA Cervix Position: mid Consistency: soft Vaginal Exam Presentation: Vertex Contractions Monitor Mode: External Contraction Frequency(min): every 2-3 min Contraction Duration(sec): 50 Intensity: Moderate Fetus A Monitor: External (US) Heart Rate Baseline: 140 Presentation: Cephalic Variability: Moderate (6-25 BPM) Categories: Category I FHR Rhythm: Regular Accelerations: 15 X 15 Decelerations: None Amniotic Membrane Status: Ruptured Rupture Method: Artifical Amniotic Fluid: Clear Amount: small Date of Membrane Rupture: 04/23/25 Time of Membrane Rupture: 15:31 Assessment and Plan Assessment and plan (1) GBS (group B Streptococcus carrier), +RV culture, currently : Status: Acute Assessment and plan: Two doses of antibiotics received. Afebrile (2) Encounter for induction of labor: Status: Acute Assessment and plan: Comfort measures offered and ambulation encouraged. Anticipate . Will reexamine in 4 hours or when appropriate. Consider pitocin infusion if necessary. Rossi plans to use nitrous oxide for pain relief. Objective Temp Pulse Resp BP Pulse Ox 98.4 F 95 H 18 115/71 97 04/23/25 10:57 04/23/25 13:57 04/23/25 08:27 04/23/25 13:57 04/23/25 08:27 Laboratory Results WBC 7.93 10^3/uL (4.4-10.8) 04/23/25 08:38 RBC 4.18 10^6/uL (3.93-5.22) 04/23/25 08:38 Hgb 13.0 g/dL (11.2-15.7) 04/23/25 08:38 Hct 37.4 % (36.0-46.0) 04/23/25 08:38 MCV 90 fL (80-95) 04/23/25 08:38 MCH 31.1 pg (27.0-33.0) 04/23/25 08:38 MCHC 34.8 % (32.0-36.0) 04/23/25 08:38 RDW 12.4 % (11.7-14.6) 04/23/25 08:38 Plt Count 179 10^3/uL (130-400) 04/23/25 08:38 MPV 9.9 fL (8.0-11.0) 04/23/25 08:38 Immature Gran % 0.1 % 04/23/25 08:38 Neutrophils % 60.4 % 04/23/25 08:38 Lymphocytes % 32.2 % 04/23/25 08:38 Monocytes % 7.1 % 04/23/25 08:38 Eosinophils % 0.1 % 04/23/25 08:38 Basophils % 0.1 % 04/23/25 08:38 Nucleated RBC % 0.0 % (0.0-0.3) 04/23/25 08:38 Absolute Neutrophils 4.79 10^3/uL (1.2-6.7) 04/23/25 08:38 Absolute Lymphocytes 2.55 10^3/uL (1.2-3.4) 04/23/25 08:38 Absolute Monocytes 0.56 10^3/uL (0.1-0.8) 04/23/25 08:38 Absolute Eosinophils 0.01 10^3/uL (0.0-0.7) 04/23/25 08:38 Absolute Basophils 0.01 10^3/uL (0.0-0.2) 04/23/25 08:38 ABO/Rh A Positive 04/23/25 08:38 Antibody Screen NEGATIVE 04/23/25 08:38 Subjective Patient Reports: New Complaints Interval history since last seen: Rossi reports that contractions are becoming stronger. She is coping well with them Results Hemoglobin/Hematocrit: Hgb 13.0 g/dL (11.2-15.7) 04/23/25 08:38 Hct 37.4 % (36.0-46.0) 04/23/25 08:38
--- NOTE | 2025-04-23 18:31 | W.PM.OBNL1 ---
Date of service: 04/23/25 Time of Service: 18:31 Informed Consent Informed Consent: Risk,Benefits,Alternatives Discussed (AROM vs. pitocin augmentatio) Pelvic Exam Dilation: 6 Effacement (%): 90 station: 0 Cervix Position: mid Consistency: soft Vaginal Exam Presentation: Cephalic Contractions Monitor Mode: External Contraction Frequency(min): every 2-3 Contraction Duration(sec): 50 Intensity: Strong Fetus A Monitor: External (US) Heart Rate Baseline: 130 Presentation: Cephalic Variability: Moderate (6-25 BPM) Categories: Category I FHR Rhythm: Regular Accelerations: 15 X 15 Decelerations: None Amniotic Membrane Status: Ruptured Assessment and Plan Assessment and plan (1) Encounter for induction of labor: Status: Acute Assessment and plan: Prepare for delivery. Comfort measures. Objective Temp Pulse Resp BP Pulse Ox 98.6 F 82 16 119/79 98 04/23/25 18:05 04/23/25 18:05 04/23/25 15:34 04/23/25 18:05 04/23/25 15:34 Laboratory Results WBC 7.93 10^3/uL (4.4-10.8) 04/23/25 08:38 RBC 4.18 10^6/uL (3.93-5.22) 04/23/25 08:38 Hgb 13.0 g/dL (11.2-15.7) 04/23/25 08:38 Hct 37.4 % (36.0-46.0) 04/23/25 08:38 MCV 90 fL (80-95) 04/23/25 08:38 MCH 31.1 pg (27.0-33.0) 04/23/25 08:38 MCHC 34.8 % (32.0-36.0) 04/23/25 08:38 RDW 12.4 % (11.7-14.6) 04/23/25 08:38 Plt Count 179 10^3/uL (130-400) 04/23/25 08:38 MPV 9.9 fL (8.0-11.0) 04/23/25 08:38 Immature Gran % 0.1 % 04/23/25 08:38 Neutrophils % 60.4 % 04/23/25 08:38 Lymphocytes % 32.2 % 04/23/25 08:38 Monocytes % 7.1 % 04/23/25 08:38 Eosinophils % 0.1 % 04/23/25 08:38 Basophils % 0.1 % 04/23/25 08:38 Nucleated RBC % 0.0 % (0.0-0.3) 04/23/25 08:38 Absolute Neutrophils 4.79 10^3/uL (1.2-6.7) 04/23/25 08:38 Absolute Lymphocytes 2.55 10^3/uL (1.2-3.4) 04/23/25 08:38 Absolute Monocytes 0.56 10^3/uL (0.1-0.8) 04/23/25 08:38 Absolute Eosinophils 0.01 10^3/uL (0.0-0.7) 04/23/25 08:38 Absolute Basophils 0.01 10^3/uL (0.0-0.2) 04/23/25 08:38 ABO/Rh A Positive 04/23/25 08:38 Antibody Screen NEGATIVE 04/23/25 08:38 Subjective Patient Reports: New Complaints Interval history since last seen: strong contractions. Rossi is lying on her side breathing through contractions. Results Hemoglobin/Hematocrit: Hgb 13.0 g/dL (11.2-15.7) 04/23/25 08:38 Hct 37.4 % (36.0-46.0) 04/23/25 08:38
--- NOTE | 2025-04-23 19:53 | W.OBDELIVERY ---
Date of service: 04/23/25 Time of Service: 19:53 OB Labor/ Delivery Information Baby A Delivery Delivery Method: Spontaneaous Presentation: Cephalic Vertex Position: Left Occipital Anterior Cord Description-Baby A: 3 Vessels Amniotic Fluid: Clear Quantitative Blood Loss: 250 Delivery Outcome: Liveborn Infant Transferred: Remains with Mother Note: FHTs 130s during first stage of labor. FHTs 130s in second stage. She progressed to 6 cms and very quickly to full dilation and began pushing. Second stage huddle was done. Spontaneous delivery of male infant delivered in KIM position. Baby was placed on mother's abdomen and dried and stimulated. Spontaneous cry. Cord was clamped and cut by the baby's father . The placenta delivered spontaneously and appears to by intact with a three vessel cord. Pitocin 30 units IV was administered after delivery of the placenta. The perineum was inspected and a first degree laceration was repaired . The baby did attempt to breastfeed but had difficulty latching. After delivery, Mother and baby and father of the baby were stable and bonding well in the delivery room and there were no complications. Providers Doctor: Vickie Castillo Nurse Product Safety Test Engineer: Vickie Castillo Nurse: Monica Farah Nurse: Divine Ferrera Other: Margarita Arguelles Labor/Delivery Information Number of Babies in Womb: 1 Steroids Given: None Reason Steroids Not Administered: N/A Group Beta Strep: Positive Antibiotics Administered: Yes Number of Doses of Antibiotics: 3 Rubella Status: Immune Blood Type: A+ Varicella Immunity: Immune Maternal Complications: None Shoulder Dystocia: No Stages of Labor Onset of Labor Date: 04/23/25 Complete Dilatation Date: 04/23/25 Complete Dilatation Time: 18:46 ROM Baby A: 04/23/25 ROM Baby A: 15:40 ROM Total Time- Baby A: [id number] Delivery Date-Baby A: 04/23/25 Delivery Time-Baby A: 18:49 Labor Stage 2 Duration: 3 minutes Placenta Delivery Date-Baby A: 04/23/25 Placenta Delivery Time-Baby A: 18:55 Labor-Stage 3 Duration: 6 minutes Placenta Cultured: No Placenta Status: Delivered Baby A Infant Gender: Male Gestational Status: Term (39-41.6 wks) Gestational Age in Weeks/Days: 39 Weeks and 0 Days Score-1 Minute Interval(Baby A) Heart Rate-1 minute: 100 BPM or Greater Respiratory Effort- 1 minute: Spontaneous/Strong Cry Muscle Tone-1 minute: Active Movement Reflex Response-1 minute: Prompt Response Color-1 minute: Pallor or Cyanosis Total Score-1 minute: 8 Score-5 Minute Interval(Baby A) Heart Rate- 5 minute: 100 BPM or Greater Respiratory Effort-5 minute: Spontaneous/Strong Cry Muscle Tone-5 minute: Active Movement Reflex Response-5 minute: Prompt Response Color-5 minute: Bluish Hands or Feet Total Score- 5 minute: 9
[2025-04-23] MEDS: Ibuprofen 600 MG TAB PO (21:31)
[2025-04-24 08:18] VITALS: BP 113/84; PULSE 94; RESP 16; TEMP 36.8; O2SAT 98
[2025-04-24] MEDS: Ibuprofen 600 MG TAB PO ×2 (08:31→14:08)
[2025-04-24] MEDS: Docusate Sodium 100 MG CAP PO (14:08)
--- NOTE | 2025-04-24 16:56 | W.PM.OBPNV1 ---
Date of service: 04/24/25 Time of Service: 15:00 Assessment and Plan Assessment and plan (1) Term delivered: Status: Acute Assessment and plan: A: PPD#1, nml recovery, pumping and pipette feeding infant, also formula Satisfied with experience, Plans circumcision for the baby today P: Planning discharge tomorrow morning F/up at 2 & 6 wks Routine PP care; undecided re: BCM Subjective Subjective Patient comments: No complaints, Pain well controlled, Tolerating diet and Flatus present Patient's Mood: happy baby status: Doing well, Nursing well, Supplemental feeding going well, Rooming in and Strong Bonding Observed [place] feeding status: Pumping and bottle feeding Exam Physical Exam Vital signs: Temp Pulse Resp BP Pulse Ox 98.2 F 94 H 16 113/84 98 04/24/25 08:18 04/24/25 08:18 04/24/25 08:18 04/24/25 08:18 04/24/25 08:18 Vital Signs Reviewed: Yes Constitutional Constitutional: no acute distress and cooperative HEENT Exam HEENT Exam: Normal Neck Exam Neck Exam: Normal Breast Exam Bilateral: Breast Exam: Normal and Soft Nipple Exam: Normal and Uninjured Respiratory Exam Respiratory Exam: Normal Cardiovascular Exam Cardiovascular Exam: Normal Abdominal Exam Abdomen: Other (soft, tender) Fundal Exam Fundus: Below Umbilicus and Firm Rectal Exam Rectal Exam: Not Done Exam Perineum: Repair Intact Extremities Exam Extremity Exam: Normal, Full ROM and Warm to Touch Back/Spine/Pelvis Exam Back Exam: Normal Skin Exam Skin Exam: Normal Neurological Exam Neurological Exam: Normal Psychiatric Exam Psychiatric Exam: Normal
[2025-04-24 20:39] VITALS: BP 116/81; PULSE 81; RESP 18; TEMP 36.6
--- NOTE | 2025-04-25 08:01 | OBPPV_ITS ---
Date of service: 04/25/25 Time of Service: 08:01 Assessment and Plan Assessment and plan (1) Term delivered: Status: Acute Assessment and plan: A: PPD#2, feeling well and caring for infant Satisfied with experience, P: Discharge today, written instructions reviewed and given to pt F/up at 2 & 6 wks Routine PP care; undecided re: BCM Subjective Subjective Patient comments: No complaints, Pain well controlled, Tolerating diet and Flatus present Patient's Mood: happy [place] baby status: Doing well, Supplemental feeding going well, Rooming in and Strong Bonding Observed feeding status: Breast and formula feeding and Pumping and bottle feeding Exam Physical Exam Vital signs: Temp Pulse Resp BP Pulse Ox 97.9 F 81 18 116/81 98 04/24/25 20:39 04/24/25 20:39 04/24/25 20:39 04/24/25 20:39 04/24/25 08:18 Vital Signs Reviewed: Yes Constitutional Constitutional: no acute distress and cooperative HEENT Exam HEENT Exam: Normal Neck Exam Neck Exam: Normal Breast Exam Bilateral: Breast Exam: Normal and Soft Respiratory Exam Respiratory Exam: Normal Cardiovascular Exam Cardiovascular Exam: Normal Abdominal Exam Abdomen: Other (soft, tender) Fundal Exam Fundus: Below Umbilicus and Firm Rectal Exam Rectal Exam: Not Done Exam Perineum: Repair Intact Extremities Exam Extremity Exam: Normal, Full ROM and Warm to Touch Back/Spine/Pelvis Exam Back Exam: Normal Skin Exam Skin Exam: Normal Neurological Exam Neurological Exam: Normal Psychiatric Exam Psychiatric Exam: Normal Results Hemoglobin/Hematocrit: Hgb 13.0 g/dL (11.2-15.7) 04/23/25 08:38 Hct 37.4 % (36.0-46.0) 04/23/25 08:38 Hemorrrhage Note IV Site Right Antecubital: IV Catheter Gauge: 20
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
[2025-04-25] MEDS: Acetaminophen 325 MG TAB 650 MG PO (08:32)
[2025-04-25] MEDS: Docusate Sodium 100 MG CAP PO (08:32)
[2025-04-25] MEDS: Ibuprofen 600 MG TAB PO (08:32)
== END 2025-04-25 13:40 | disposition home or self-care (01) | DRG 807 ==
PROVIDERS: Advanced Practice Midwife; Admitting Provider Advanced Practice Midwife; PCP Nurse Practitioner Family; Visit Provider Advanced Practice Midwife
DX: O99.824 Streptococcus B carrier state complicating childbirth (principal); Z37.0 Single live birth; Z3A.39 39 weeks gestation of pregnancy; F41.9 Anxiety disorder, unspecified; F32.A Depression, unspecified; J45.909 Unspecified asthma, uncomplicated; O70.0 First degree perineal laceration during delivery
CPT/HCPCS: 36415; 86850; 86900; 86901; 59200; 85025; J2540; J3490